=== PATIENT | male | born 1965 | race Caucasian/White ===

== ENCOUNTER 2024-03-01 22:40 | Emergency (ER) | payer SELFPAY ==
[2024-03-01 22:57] VITALS: RESP 19
--- NOTE | 2024-03-01 23:17 | ED ---
Seizure HPI - General Stated Complaint: seizure Time Seen by Provider: 03/01/24 22:51 Source: patient, EMS Mode of arrival: EMS Limitations: no limitations - History of Present Illness Initial Comments: Patient is a 58-year-old man who is here to have evaluation for seizure. Rosi gamez sent in from [facility] to have evaluation. He states that there was no aura. He feels like he is back at baseline. He denies trauma other than having bitten the left side of his tongue. Patient did stop drinking approximately 1 to 2 pints of whiskey per day 8 days ago. MD Complaint: seizure Onset/Timin -: hour(s) Description of Episode: loss of consciousness, tonic-clonic movement, bladder incontinence -: second(s) Witnessed: yes - by bystander Trauma: No Seizure History: none Place: other Possible Precipitating Event: alcohol withdrawal Associated Symptoms: denies other symptoms Treatments Prior to Arrival: none - Related Data Allergies Allergy/AdvReac Type Severity Reaction Status Date / Time codeine AdvReac Unknown Verified 03/01/24 23:32 Review of Systems ROS Statement: Those systems with pertinent positive or pertinent negative responses have been documented in the HPI. ROS Other: All systems not noted in ROS Statement are negative. Constitutional: Denies: fever, chills Respiratory: Denies: cough, dyspnea Cardiovascular: Denies: chest pain, palpitations Gastrointestinal: Denies: abdominal pain, nausea, vomiting Genitourinary: Denies: dysuria, hematuria Musculoskeletal: Denies: back pain Skin: Denies: rash Neurological: Denies: headache, weakness, numbness, paresthesias Past Medical History Smoking Status: Current every day smoker Past Alcohol Use History: Daily Past Drug Use History: None Reported General Exam Limitations: no limitations General appearance: alert, in no apparent distress Head exam: Present: atraumatic, normocephalic Eye exam: Present: normal appearance, PERRL, EOMI. Absent: scleral icterus, conjunctival injection, nystagmus ENT exam: Present: normal oropharynx, mucous membranes moist, other (Contusion left side of tongue) Neck exam: Present: normal inspection, full ROM. Absent: meningismus Respiratory exam: Present: wheezes (Mild wheeze). Absent: respiratory distress, rales, rhonchi, stridor, accessory muscle use Cardiovascular Exam: Present: regular rate, normal rhythm, normal heart sounds. Absent: systolic murmur, diastolic murmur, rubs, gallop GI/Abdominal exam: Present: soft. Absent: distended, tenderness, guarding, rebound, rigid, mass Extremities exam: Present: normal inspection, normal capillary refill. Absent: pedal edema, calf tenderness Back exam: Present: normal inspection. Absent: CVA tenderness (R), CVA t enderness (L) Neurological exam: Present: alert Skin exam: Present: warm, dry, intact, normal color. Absent: rash Course Vital Signs 03/01/24 03/02/24 22:53 01:21 Temperature 100.4 F H 98.4 F Pulse Rate 72 64 Respiratory 19 19 Rate Blood Pressure 143/94 134/88 O2 Sat by Pulse 96 99 Oximetry Medical Decision Making - Medical Decision Making Was pt. sent in by a medical professional or institution (HAYLEE Syed, DRUPAL DEVELOPER, urgent care, hospital, or alf...) When possible be specific @ -Sent from formerly [facility] to have further evaluation Did you speak to anyone other than the patient for history (EMS, parent, family, police, friend...)? What history was obtained from this source @ -[No] Did you review nursing and triage notes (agree or disagree)? Why? @ -[I reviewed and agree with nursing and triage notes] Were old charts reviewed (outside hosp., previous admission, EMS record, old EKG, old radiological studies, urgent care reports/EKG's, alf records)? Report findings @ -[Transfer records were reviewed] Differential Diagnosis (chest pain, altered mental status, abdominal pain women, abdominal pain men, vaginal bleeding, weakness, fever, dyspnea, syncope, headache, dizziness, GI bleed, back pain, seizure, CVA, palpatations, mental health, musculoskeletal)? @ -[Differential Seizure: Recurrent seizure disorder, febrile seizure, alcohol withdrawal, stimulants, meningitis, encephalitis, intercranial hemorrhage, intracranial tumor, stroke, eclampsia, thyrotoxicosis, hypocalcemia, hyponatremia, hypernatremia, hypomagnesemia, psychogenic, this is not meant to be an all-inclusive list. EKG interpreted by me (3pts min.). @ -[As above] X-rays interpreted by me (1pt min.). @ -[None done] CT interpreted by me (1pt min.). @ -[None done] U/S interpreted by me (1pt. min.). @ -[None done] What testing was considered but not performed or refused? (CT, X-rays, U/S, labs)? Why? @ -[None] What meds were considered but not given or refused? Why? @ -[None] Did you discuss the management of the patient with other professionals (professionals i.e. , PA, DRUPAL DEVELOPER, lab, RT, psych nurse, social services coordinator, restaurant bartender, teacher, correctional program officer, trimming caser)? Give summary @ -[No] Was smoking cessation discussed for >3mins.? @ -[No] Was critical care preformed (if so, how long)? @ -[No] Were there social determinants of health that impacted care today? How? (Homelessness, low income, unemployed, alcoholism, drug addiction, transportation, low edu. Level, literacy, decrease access to med. care, [facility], rehab)? @ -[No] Was there de-escalation of care discussed even if they declined (Discuss DNR or withdrawal of care, Hospice)? DNR status @ -[No] What co-morbidities impacted this encounter? (DM, HTN, Smoking, COPD, CAD, Cancer, CVA, ARF, Chemo, Hep., AIDS, mental health diagnosis, sleep apnea, morbid obesity)? @ -[Alcohol dependence Was patient admitted / discharged? Hospital course, mention meds given and route, prescriptions, significant lab abnormalities, going to OR and other pertinent info. @ -[Patient is 58-year-old man sent to have evaluation after having what appears to be withdrawal related uncomplicated generalized tonic-clonic seizure. The patient is back at baseline and would like to continue at the rehab facility. He does appear to be stable at this point. Undiagnosed new problem with uncertain prognosis? @ -[No] Drug Therapy requiring intensive monitoring for toxicity (Heparin, Nitro, Insulin, Cardizem)? @ -[No] Were any procedures done? @ -[No] Diagnosis/symptom? @ -[Alcohol withdrawal Generalized tonic-clonic seizure Acute, or Chronic, or Acute on Chronic? @ -[Acute Uncomplicated (without systemic symptoms) or Complicated (systemic symptoms)? @ -[Complicated by seizure Side effects of treatment? @ -[No] Exacerbation, Progression, or Severe Exacerbation? @ -[No] Poses a threat to life or bodily function? How? (Chest pain, USA, [place], pneumonia, PE, COPD, DKA, ARF, appy, cholecystitis, CVA, Diverticulitis, Homicidal, Suicidal, threat to staff... and all critical care pts) @ -[There is risk but patient is at a rehab facility - Lab Data Result diagrams: 03/01/24 23:38 03/01/24 23:38 Lab Results 03/01/24 03/01/24 Range/Units 23:38 23:38 WBC 7.3 (3.8-10.6) k/uL RBC 3.75 L (4.30-5.90) m/uL Hgb 12.6 L (13.0-17.5) gm/dL Hct 37.8 L (39.0-53.0) % MCV 100.8 H (80.0-100.0) fL MCH 33.5 (25.0-35.0) pg MCHC 33.3 (31.0-37.0) g/dL RDW 14.5 (11.5-15.5) % Plt Count 237 (150-450) k/uL MPV 7.9 Neutrophils % 64 % Lymphocytes % 15 % Monocytes % 15 % Eosinophils % 1 % Basophils % 1 % Neutrophils # 4.7 (1.3-7.7) k/uL Lymphocytes # 1.1 (1.0-4.8) k/uL Monocytes # 1.1 H (0-1.0) k/uL Eosinophils # 0.1 (0-0.7) k/uL Basophils # 0.0 (0-0.2) k/uL Macrocytosis Slight Sodium 134 L (137-145) mmol/L Potassium 4.8 (3.5-5.1) mmol/L Chloride 103 (98-107) mmol/L Carbon Dioxide 27 (22-30) mmol/L Anion Gap 4 mmol/L BUN 24 H (9-20) mg/dL Creatinine 0.63 L (0.66-1.25) mg/dL Est GFR (CKD-EPI)AfAm >90 (>60 ml/min/1.73 sqM) Est GFR (CKD-EPI)NonAf >90 (>60 ml/min/1.73 sqM) Glucose 115 H (74-99) mg/dL Calcium 9.8 (8.4-10.2) mg/dL Magnesium 1.9 (1.6-2.3) mg/dL Total Bilirubin 0.4 (0.2-1.3) mg/dL AST 37 (17-59) U/L ALT 70 H (4-49) U/L Alkaline Phosphatase 62 (38-126) U/L Total Protein 6.4 (6.3-8.2) g/dL Albumin 3.8 (3.5-5.0) g/dL - EKG Data -: EKG Interpreted by Md EKG shows normal: sinus rhythm, axis (Normal), intervals (Normal), QRS complexes (Normal), ST-T waves ( normal) Rate: normal (Rate 75 bpm) Interpretation: normal EKG Disposition Clinical Impression: New onset seizure Disposition: HOME SELF-CARE Instructions (If sedation given, give patient instructions): Seizure/Epilepsy Discharge Instructions & Follow-Up Additional Instructions: As we discussed, MRI is recommended to further evaluate the spot found on CT scan. If there is any problem obtaining this return to the emergency department. Follow-up with neurology for EEG. Do not drive until cleared by neurology. Is patient prescribed a controlled substance at d/c from ED?: No Referrals: Martin Mcclelland MD [Primary Care Provider] - 1-2 days Melissa Gan MD [REFERRING] - 1-2 days
[2024-03-01 23:51] LABS: Basophils % (A) 1 %; Eosinophils # (A) 0.1 k/uL (0-0.7); Eosinophils % (A) 1 %; HCT 37.8 % (39.0-53.0); HGB 12.6 gm/dL (13.0-17.5); Lymphocytes # (A) 1.1 k/uL (1.0-4.8); Lymphocytes % (A) 15 %; MCH 33.5 pg (25.0-35.0); MCHC 33.3 g/dL (31.0-37.0); MCV 100.8 fL (80.0-100.0); Macrocytosis Slight; Mean Platelet Volume 7.9; Monocytes # (A) 1.1 k/uL (0-1.0); Monocytes % (A) 15 %; Neutrophils # (A) 4.7 k/uL (1.3-7.7); Neutrophils % (A) 64 %; Platelet Count 237 k/uL (150-450); RBC 3.75 m/uL (4.30-5.90); RDW 14.5 % (11.5-15.5); WBC 7.3 k/uL (3.8-10.6)
[2024-03-02 00:06] LABS: ALT 70 U/L (4-49); AST 37 U/L (17-59); African American GFR (CKD) >90 (>60 ml/min/1.73 sqM); Albumin 3.8 g/dL (3.5-5.0); Alkaline Phosphatase 62 U/L (38-126); Anion Gap 4 mmol/L; Blood Urea Nitrogen 24 mg/dL (9-20); Calcium 9.8 mg/dL (8.4-10.2); Carbon Dioxide 27 mmol/L (22-30); Chloride 103 mmol/L (98-107); Glucose 115 mg/dL (74-99); Magnesium 1.9 mg/dL (1.6-2.3); Non-African American GFR(CKD) >90 (>60 ml/min/1.73 sqM); Potassium 4.8 mmol/L (3.5-5.1); Sodium 134 mmol/L (137-145); Total Bilirubin 0.4 mg/dL (0.2-1.3); Total Protein 6.4 g/dL (6.3-8.2)
--- NOTE | 2024-03-02 01:07 | CT ---
EXAM: CT Head Without Intravenous Contrast CLINICAL HISTORY: ITS.REASON CT Reason: seizure TECHNIQUE: Axial computed tomography images of the head/brain without intravenous contrast. CTDI is 49.1 mGy and DLP is 1226.4 mGy-cm. This CT exam was performed using one or more of the following dose reduction techniques: automated exposure control, adjustment of the mA and/or kV according to patient size, and/or use of iterative reconstruction technique. COMPARISON: No previous studies. FINDINGS: Brain: Best seen on series 202 image 33, located within the left frontal lobe, there is a 2.2 x 2.1 x 1.6 cm hypodensity of uncertain etiology. Possibility of acute/subacute CVA in this area cannot be excluded. No hemorrhage. No significant white matter disease. Ventricles: Unremarkable. No ventriculomegaly. Bones/joints: Calvarium is unremarkable. No acute fracture. Soft tissues: Unremarkable. Sinuses: 1.5 cm polyp versus mucous retention cyst left maxillary sinus. Mastoid air cells: Mastoid air cells are well pneumatized. IMPRESSION: Abnormal hypodensity within the left frontal lobe that seen on series 202 image 33 as discussed above. Acute/subacute CVA cannot be excluded. Other etiologies cannot be excluded, particular given the patient's history of seizures. MRI imaging of the brain with diffusion-weighted sequences and contrast administration is advised to follow. Further workup is necessary. <MYCVCSECTION> Communications: 03/02/24 01:20 Call Doctor Regarding Above results, called on 03/02 01:20 (-04:00)
[2024-03-02] MEDS: ACETAMINOPHEN TAB 325 MG TAB PO STA (01:22)
[2024-03-02 01:27] VITALS: BP 134/88; PULSE 64; TEMP 98.4
== END 2024-03-02 01:58 | disposition home or self-care (01) ==
LOC: EC 22:40
DX: R56.9 Unspecified convulsions (principal); F10.239 Alcohol dependence with withdrawal, unspecified; F17.200 Nicotine dependence, unspecified, uncomplicated; Z88.5 Allergy status to narcotic agent
CPT/HCPCS: 36415; 70450; 80053; 83735; 85025; 93005; 99285